=== PATIENT | male | born 1970 | race African-American/Black ===

== ENCOUNTER 2025-07-03 09:18 | Outpatient (CLI) | payer OTHER, SELFPAY ==
--- NOTE | ~2025-07-03 | CT_ITS ---
EXAM/PROCEDURE: CT abdomen pelvis wo con HISTORY: Chronic prostatitis COMPARISON: None available. TECHNIQUE: Noncontrast CT of the abdomen and pelvis FINDINGS: No hydroureteronephrosis. No urolithiasis seen. The urinary bladder wall is slightly prominent and may be mildly thickened. Urinary bladder itself is borderline distended. The prostate appears mildly enlarged but not grossly abnormal given technique. Moderate amount of stool extends to the cecum. Nonobstructive bowel gas pattern with no free air free fluid or pneumatosis. No AAA or gross CT evidence of acute cholecystitis pancreatitis appendicitis. Spleen liver stomach and adrenal glands unremarkable. No bulky mesenteric or retroperitoneal lymphadenopathy or masses seen. Lung bases clear. Diffuse degenerative changes throughout the bones. IMPRESSION: 1. Directed noncontrast exam demonstrating mildly enlarged prostate. 2. Borderline distended urinary bladder; mild urinary bladder wall thickening may be present. Correlate with urinalysis. 3. Other findings as above. Reviewed, dictated and finalized at location A. [facility] IMPRESSION: 1. Directed noncontrast exam demonstrating mildly enlarged prostate. 2. Borderline distended urinary bladder; mild urinary bladder wall thickening m ay be present. Correlate with urinalysis. 3. Other findings as above.
== END 2025-07-03 09:19 | disposition home or self-care (01) ==
LOC: ANHIMG 09:27
PROVIDERS: Visit Provider Urology
DX: R93.41 Abnormal radiologic findings on diagnostic imaging of renal pelvis, ureter, or bladder (principal); N40.0 Benign prostatic hyperplasia without lower urinary tract symptoms; N32.89 Other specified disorders of bladder; N41.1 Chronic prostatitis; M19.09 Primary osteoarthritis, other specified site
CPT/HCPCS: 74176